=== PATIENT | female | born 1995 | race Caucasian/White ===

== ENCOUNTER 2018-01-02 06:42 | Emergency (ER) | payer OTHER ==
[2018-01-02] MEDS: ACETAMINOPHEN 500 MG TAB PO (07:46)
[2018-01-02] MEDS: IBUPROFEN 800 MG TAB PO (07:46)
== END 2018-01-02 07:50 | disposition home or self-care (01) ==
LOC: FTE 06:42
DX: J02.0 Streptococcal pharyngitis (principal); J01.90 Acute sinusitis, unspecified; J20.9 Acute bronchitis, unspecified
CPT/HCPCS: 99284; Z7502